=== PATIENT | female | born 1945 | race Caucasian/White ===

== ENCOUNTER 2016-10-05 11:39 | Outpatient (CLI) ==
--- NOTE | 2016-10-05 13:13 | DI ---
EXAM: Two views of the chest. History: Short of breath Comparison: Chest radiograph 03/05/2011 Findings: Atherosclerotic vascular calcifications. Heart is mildly enlarged. No change in the medi al right lower lung opacity could represent prominent pericardial fat pad or atelectasis. No defini te acute infiltrates. No appreciable pleural fluid and no pneumothorax. No acute osseous abnormali ties. Impression: No change in the medial right lower lung opacity could represent prominent pericardial fat pad or atelectasis. Stable mild cardiomegaly.
== END 2016-10-05 11:40 | disposition home or self-care (01) ==
LOC: RAD 11:39
PROVIDERS: ATTEND Nurse Practitioner Family
DX: R06.02 Shortness of breath (principal)

== ENCOUNTER 2018-10-26 11:32 | Outpatient (CLI) | payer OTHER | END 2018-10-26 11:33 | disposition home or self-care (01) | LOC: LAB 11:32 | PROVIDERS: ATTEND Nurse Practitioner Family | DX: I10 Essential (primary) hypertension (principal) | CPT/HCPCS: 36415; 80053; 80061; 84443; 85025 ==